=== PATIENT | male | born 1975 | race Caucasian/White ===

== ENCOUNTER 2017-09-11 13:03 | Emergency (ER) | payer OTHER ==
[~2017-09-11] VITALS: Ht 188 cm; Wt 99.8 kg
[~2017-09-11 13:03] MED LIST: GABAPENTIN300 MG PO; LAMOTRIGINE200 MG PO; LEVOTHYROXINE200 MCG PO; METOPROLOL SUCC50 MG PO; NORCO 5-325 TA1 EACH PO; NUVIGIL250 MG PO; OLANZAPINE ODT5 MG PO
[2017-09-11] MEDS ORDERED: PROPRANOLOL HCL60 MG PO (13:28)
[2017-09-11] MEDS ORDERED: AMOXICILLIN500 MG PO (15:32)
[2017-09-11] MEDS ORDERED: ROBITUSSIN COU237 M2 PO (15:32)
== END 2017-09-11 15:45 | disposition home or self-care (01) ==
LOC: ED 13:03
DX: J06.9 Acute upper respiratory infection, unspecified (principal); I10 Essential (primary) hypertension; E03.9 Hypothyroidism, unspecified; Z90.89 Acquired absence of other organs; Z79.899 Other long term (current) drug therapy; Z88.2 Allergy status to sulfonamides
CPT/HCPCS: 99283

== ENCOUNTER 2018-03-01 12:00 | Day surgery (SDC) | payer OTHER ==
[~2018-03-01] VITALS: Ht 188 cm; Wt 106.1 kg
[~2018-03-01 12:00] MED LIST changes: +AMOXICILLIN500 MG PO; +DICYCLOMINE HCL10 MG PO; +LAMICTAL200 MG PO; +NEURONTIN300 MG PO; +NUVIGIL150 MG PO; +PROPRANOLOL HCL60 MG PO; +ROBITUSSIN COU237 M2 PO; +UNITHROID200 MCG PO
--- NOTE | 2018-03-01 14:29 | NUR ---
03/01/18 1429 Clarice Keating 1420 PT ARRIVED IN PACU SLEEPY WITH NO C/O'S. OXYGEN DECREASED TO 2L VIA NC WITH SATS 100%. 1425 SIPPING ON WATER. OXYGEN REMOVED. SATS 97% ON RA. 1430 AT BEDSIDE TALKING WITH PT.
--- NOTE | 2018-03-02 15:24 | OR ---
[facility] [address] [place], [place] [address] Signed DATE OF OPERATION: 03/01/2018 SURGEON: Napoleon Webb MD PREOPERATIVE DIAGNOSES: 1. Persistent diarrhea, prior diagnosis of irritable bowel syndrome. 2. Lower abdominal pain. 3. Epigastric pain. POSTOPERATIVE DIAGNOSES: 1. Normal upper endoscopy. 2. Internal hemorrhoids. Colon and ilium appearing normal. PROCEDURES: 1. Esophagogastroduodenoscopy with biopsy. 2. Total colonoscopy to cecum with intubation of ileum and biopsies. ANESTHESIA: Intravenous sedation, fentanyl 150 mcg, Versed 7 mg (total). INDICATION: This 42-year-old white man is a patient Dr. Brannon and has had diarrhea for quite some time. He is known to me from need for emergent laparoscopic cholecystectomy in 2008. The patient is bothered by diarrhea, sometimes having 5-6 bowel movements a day, which were poorly formed. He additionally has lower abdominal pain and sometimes upper abdominal pain. He has been empirically treated with Viberzi for presumed diagnosis of irritable bowel syndrome, diarrhea predominant. This was not helpful to him. He is admitted at this time to undergo upper endoscopy and colonoscopy. He understands the risks of bleeding, infection, and perforation. FINDINGS: On upper endoscopy, the stomach, duodenum and esophagus appeared normal and good flap valve was noted. There was no sign of esophagitis, gastritis or duodenitis. Biopsies were obtained to assess for celiac disease. On colonoscopy, the prep was good. Complete colonoscopy was undertaken of the cecum and intubation of the ileum was accomplished as well. The ileum itself appeared normal. Multiple biopsies were obtained to assess for occult ileitis. The remaining colon appeared normal as well without signs of diverticular formation, colitis, cancer, or polyps. Biopsies were taken throughout to assess for collagenous colitis. Electronically Signed By: NAPOLEON WEBB MD 03/02/18 1524 PATIENT NAME: JOANNA CARDENAS OPERATIVE REPORT DATE OF : 75 REPORT #: [id number] PHYSICIAN: NAPOLEON WEBB MD PCP: ODILON CAIN MD REPORT IS CONFIDENTIAL AND NOT TO BE RELEASED WITHOUT AUTHORIZATION [facility] [address] [place], [place] [address] Signed DESCRIPTION OF PROCEDURE: The patient was brought to the endoscopy suite given topical Hurricaine spray hypopharyngeal anesthesia. He was placed in lateral decubitus position and given intravenous sedation to the point of slurred speech and nystagmus. A bite block was placed. An Olympus video upper endoscope was passed in the hypopharynx. The vocal cords appeared normal. The scope was advanced to the esophagus and throughout its length it appeared normal. The scope was advanced to the stomach, which was insufflated with air, was a small amount of bilious fluid in the stomach, which was suctioned free. Rugal folds appeared normal as did the antrum and pylorus. The scope was passed through the pylorus into the duodenum, which appeared normal. The ampulla was visualized and normal. Biopsies were taken of the duodenum and scope was withdrawn to the distal stomach where biopsies taken of the antrum for both DEDE and pathologic testing. Retroflexed view was undertaken showing a very good flap valve. No sign of hiatal hernia or proximal gastritis. Scope was straightened, withdrawn and biopsy was then taken of the normal-appearing esophageal mucosa. Careful withdrawal of scope showed no other findings. The scope was removed. The table was rotated and additional sedation given. Digital rectal examination was normal. An Olympus video colonoscope was passed in the rectum and manipulated without problem ultimately intubating the cecum. Ileocecal valve appeared normal as did the appendiceal orifice. With various manipulations, the scope was passed into the ilium and advanced into a fair distance. The ileum was bland, had no sign of ulcerations, stricture, neoplasm, inflammatory changes, or other problems. Biopsies were obtained nevertheless. The scope was then withdrawn to the cecum where biopsies were obtained. Careful withdrawal of scope showed no sign of abnormality throughout. Biopsies were taken of the left colon, sigmoid and rectum. Retroflexed view did show internal hemorrhoidal changes. No sign of acute problem however. The scope was removed and the patient was taken to recovery in good condition. CONCLUDING DIAGNOSIS: It is uncertain if he has irritable bowel syndrome proper diarrhea predominant or simply has effective cholecystectomy from years past. For now, we will initiate Questran 4 g p.o. q.i.d. tapering to the lowest effective dose if effective at all. He will return to see us in 4-6 weeks. Napoleon Webb MD Electronically Signed By: NAPOLEON WEBB MD 03/02/18 1524 PATIENT NAME: JOANNA CARDENAS OPERATIVE REPORT DATE OF : 75 REPORT #: [id number] PHYSICIAN: NAPOLEON WEBB MD PCP: ODILON CAIN MD REPORT IS CONFIDENTIAL AND NOT TO BE RELEASED WITHOUT AUTHORIZATION [address] [address] Signed /[facility] /[id number] cc: Dr. Brannon Copies: ~ Electronically Signed By: NAPOLEON WEBB MD 03/02/18 1524 PATIENT NAME: RONALDJOANNA GONZALES OPERATIVE REPORT DATE OF : 75 REPORT #: [id number] PHYSICIAN: NAPOLEON WEBB MD PCP: ODILON CAIN MD REPORT IS CONFIDENTIAL AND NOT TO BE RELEASED WITHOUT AUTHORIZATION
== END 2018-03-01 14:50 | disposition home or self-care (01) ==
LOC: OPS 12:00 → DS 12:00 → OPS 13:00
PROVIDERS: Surgery
PROC: 0DB38ZX Excision of Lower Esophagus, Via Natural or Artificial Opening Endoscopic, Diagnostic (ICD-10-PCS; 2018-03-01)
PROC: 0DBH8ZX Excision of Cecum, Via Natural or Artificial Opening Endoscopic, Diagnostic (ICD-10-PCS; 2018-03-01)
PROC: 0DBN8ZX Excision of Sigmoid Colon, Via Natural or Artificial Opening Endoscopic, Diagnostic (ICD-10-PCS; 2018-03-01)
PROC: 0DBP8ZX Excision of Rectum, Via Natural or Artificial Opening Endoscopic, Diagnostic (ICD-10-PCS; 2018-03-01)
PROC: 0DBB8ZX Excision of Ileum, Via Natural or Artificial Opening Endoscopic, Diagnostic (ICD-10-PCS; 2018-03-01)
PROC: 0DB98ZX Excision of Duodenum, Via Natural or Artificial Opening Endoscopic, Diagnostic (ICD-10-PCS; principal; 2018-03-01 13:00)
PROC: 0DB78ZX Excision of Stomach, Pylorus, Via Natural or Artificial Opening Endoscopic, Diagnostic (ICD-10-PCS; 2018-03-01 13:00)
DX: K64.8 Other hemorrhoids (principal); R10.13 Epigastric pain; K58.9 Irritable bowel syndrome, unspecified; I10 Essential (primary) hypertension; F17.220 Nicotine dependence, chewing tobacco, uncomplicated; Z98.890 Other specified postprocedural states; Z88.2 Allergy status to sulfonamides
CPT/HCPCS: 99153; G0500; J2250; J3010

== ENCOUNTER 2020-08-17 09:52 | Emergency (ER) | payer OTHER ==
[~2020-08-17] VITALS: Ht 188 cm; Wt 115.7 kg
--- OUTSIDE RECORDS SUMMARY | 2020-08-17 09:54 | XMS ---
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 Ghada has no Care Guidelines for this patient. Karlee VISIT COUNT (12 MO.) 1 SISI Cedeño TOTAL 1 NOTE: Visits indicate total known visits. ED/C VISIT TRACKING (12 MO.) 08/17/2020 09:53 SISI Rodriguez OR TYPE: Emergency COMPLAINT: - R MIDDLE FINGER INJURY INPATIENT VISIT TRACKING (12 MO.) No inpatient visits to display in this time frame [email or web address]
[2020-08-17] MEDS ORDERED: BUPROPION XL150 MG PO (10:17)
[2020-08-17] MEDS ORDERED: AMPHETAMINE SAL30 MG (10:17)
[2020-08-17] MEDS ORDERED: DULOXETINE HCL30 MG PO (10:17)
[2020-08-17] MEDS ORDERED: LORAZEPAM2 MG (10:18)
[2020-08-17] MEDS ORDERED: VYVANSE70 MG (10:18)
[2020-08-17] MEDS ORDERED: ROSUVASTATIN CA10 MG (10:18)
[2020-08-17] MEDS ORDERED: ATOMOXETINE HCL40 MG PO (10:18)
[2020-08-17] MEDS ORDERED: LEVOTHYROXINE150 MCG PO (10:18)
[2020-08-17] MEDS ORDERED: AMPHETAMINE SAL15 MG PO (10:18)
[2020-08-17] MEDS ORDERED: REXULTI2 MG PO (10:18)
== END 2020-08-17 10:59 | disposition home or self-care (01) ==
LOC: ED 09:52
DX: S61.212A Laceration without foreign body of right middle finger without damage to nail, initial encounter (principal); I10 Essential (primary) hypertension; E03.9 Hypothyroidism, unspecified; Z88.2 Allergy status to sulfonamides; Z79.899 Other long term (current) drug therapy; W31.89XA Contact with other specified machinery, initial encounter
CPT/HCPCS: 99283

== ENCOUNTER 2021-09-23 08:42 | Emergency (ER) | payer OTHER ==
[~2021-09-23] VITALS: Ht 188 cm; Wt 116.1 kg
[~2021-09-23 08:42] MED LIST changes: +AMPHETAMINE SAL15 MG PO; +AMPHETAMINE SAL30 MG; +ATOMOXETINE HCL40 MG PO; +BUPROPION XL150 MG PO; +DULOXETINE HCL30 MG PO; +LEVOTHYROXINE150 MCG PO; +LORAZEPAM2 MG; +REXULTI2 MG PO; +ROSUVASTATIN CA10 MG; +VYVANSE70 MG
[2021-09-23] MEDS ORDERED: ATOMOXETINE HCL80 MG PO (09:00)
== END 2021-09-23 10:02 | disposition home or self-care (01) ==
LOC: ED 08:42
DX: K92.2 Gastrointestinal hemorrhage, unspecified (principal); I10 Essential (primary) hypertension; E03.9 Hypothyroidism, unspecified; G47.30 Sleep apnea, unspecified; Z88.2 Allergy status to sulfonamides; Z79.899 Other long term (current) drug therapy
CPT/HCPCS: 36415; 80053; 85025; 99283

== ENCOUNTER 2021-10-22 06:08 | Day surgery (SDC) | payer OTHER ==
[~2021-10-22] VITALS: Ht 190.5 cm; Wt 117.7 kg
[~2021-10-22 06:08] MED LIST changes: +ATOMOXETINE HCL80 MG PO; +CRESTOR10 MG PO; +CYTOMEL5 MCG PO; +METHYLPHENIDATE PO
--- NOTE | 2021-10-22 10:01 | NUR ---
10/22/21 1001 Clarice Keating 0931 PT ARRIVED IN PACU NON RESPONSIVE TO NOXIOUS STIMULI WITH OPA AND CHIN LIFT BY ANESTHESIA. 0938 PT REACTIVE. OPA REMOVED. 0950 DR AT BEDSIDE TALKING WITH PT. ALL QUESTIONS ANSWERED. 1000 SITTING UP IN BEDSIDE DRINKING WATER.
--- NOTE | 2021-10-22 12:28 | NUR ---
PT ALERT, ORIENTED AND VISITING WITH HIS SABINA. PT HAS HAD SCOPE BEFORE ALL [facility] ASKED ANSWERED. PT THANKED ME FOR VISIT, GAVE BLESSING AND WILL FOLLOW NEEDED
--- NOTE | 2021-10-23 05:10 | OR ---
[facility] [address] [place], [place] [address] Signed DATE OF OPERATION: 10/22/2021 SURGEON: Jose F Sue MD PREOPERATIVE DIAGNOSES: 1. Intermittent rectal bleeding, mostly with bowel movements. 2. Internal hemorrhoids. 3. Irritable bowel syndrome with diarrhea. 4. Laparoscopic cholecystectomy in 2008. 5. Upper and lower endoscopy in 2017. POSTOPERATIVE DIAGNOSIS: Minimal to moderate internal hemorrhoids. PROCEDURES: Colonoscopy biopsy. ESTIMATED BLOOD LOSS: None. INDICATIONS: Flash is a 46-year-old gentleman asked to see me for ongoing intermittent rectal bleeding associated with internal hemorrhoids. He said it is mostly with bowel movements. He described irritable bowel syndrome with diarrhea throughout his entire life. He underwent laparoscopic cholecystectomy in [address] Moody. He underwent upper and lower endoscopy with Dr. Moody in 2016. At that time, he did well Versed and fentanyl. He was said to have internal hemorrhoid tissue. Biopsies from his stomach and the colon were negative. He came and saw me in July 2020 for intermittent rectal bleeding. We reviewed the records together in office. He has been pursuing conservative measures for the hemorrhoids. Unfortunately, he has yet to really adopt the idea of fiber in his diet. We have reviewed Benefiber, Metamucil and Citrucel. He remains uninterested in surgery. He is always a bit anxious and does use lorazepam on a daily basis. He actually went to the emergency room in June of [address] Mai. He had been having intermittent rectal bleeding for several months. He had been referred to my office with respect to the above. He gives no family history of colon cancer, colon polyps or inflammatory bowel disease. Once again, we had a long discussion in the office and he declined a digital rectal exam and anoscopy. He wanted to repeat the colonoscopy and make sure nothing other than the internal hemorrhoids were causing the bleeding. I gave him our brochure on colonoscopy. He understands the nature of the test. There is risk including, but not limited to gas bloating, crampy abdominal pain, Electronically Signed By: JOSE F SUE MD 10/23/21 0510 PATIENT NAME: JOANNA CARDENAS OPERATIVE REPORT DATE OF : 75 REPORT #: [id number] PHYSICIAN: JOSE F SUE MD PCP: WENDY RAMÍREZ MD REPORT IS CONFIDENTIAL AND NOT TO BE RELEASED WITHOUT AUTHORIZATION [facility] [address] [place], [place] [address] Signed bleeding, perforation requiring surgery, and missed diagnosis. We also spent some time reviewing his medications as well as his previous endoscopy using Versed and fentanyl. We had offered monitored anesthesia care with propofol given his size and his sleep apnea as well. He wanted to pursue the Versed and fentanyl first. He had expressed understanding and wished to proceed. PROCEDURE NOTE: Flash was taken into the endoscopy suite and placed in the left lateral decubitus position. He was given a total of 100 mcg of fentanyl and 6 mg of Versed with very little effect. We therefore had our anesthesia provider come to provide propofol. With the propofol, he had no lid reflex. With a digital rectal exam, he woke straight up and was talking to us quite coherently. It was pretty impressive in that regard. We therefore gave him some additional propofol. He has excellent sphincter tone and no evidence of any external hemorrhoids. He is too large to reach his prostate gland. There were no masses. The adult colonoscope was introduced and advanced around into the cecum under direct visualization of the camera without difficulty. Again, he required additional propofol. His prep was quite good. We could easily see the appendiceal orifice and the ileocecal valve. The scope was then slowly withdrawn. He had no inflammatory changes or polyps throughout his entire colon or rectum. There was no diverticulosis. No AV malformations. Upon retroflexion of the scope, he does have minimal to moderate internal hemorrhoid columns. No obvious bleeding or irritated hemorrhoid column. After this, the gas was suctioned out and the colonoscope removed. Flash tolerated his procedure quite well after the addition of the propofol. RECOMMENDATIONS: Flash can follow up in my office as needed with respect to the hemorrhoids. I have already covered that with him in great detail on his first office visit along with our brochure. Otherwise, we would see him back in 10 years for repeat screening colonoscopy. Jose F Sue MD ALB/MODL /[id number] cc: Wendy Ramírez MD Electronically Signed By: JOSE F SUE MD 10/23/21 0510 PATIENT NAME: JOANNA CARDENAS OPERATIVE REPORT DATE OF : 75 REPORT #: [id number] PHYSICIAN: JOSE F SUE MD PCP: WENDY RAMÍREZ MD REPORT IS CONFIDENTIAL AND NOT TO BE RELEASED WITHOUT AUTHORIZATION [facility] [address] [place], [place] [address] Signed Jose F Sue MD Copies: WENDY RAMÍREZ DMD, ANDREW L MD ~ Electronically Signed By: JOSE F SUE MD 10/23/21 0510 PATIENT NAME: JOANNA CARDENAS OPERATIVE REPORT DATE OF : 75 REPORT #: [id number] PHYSICIAN: JOSE F SUE MD PCP: WENDY RAMÍREZ MD REPORT IS CONFIDENTIAL AND NOT TO BE RELEASED WITHOUT AUTHORIZATION
== END 2021-10-22 10:10 | disposition home or self-care (01) ==
LOC: DS 06:08 → OPS 06:08 → DS 08:15 → OPS 10:10
PROVIDERS: ATTEND Colon & Rectal Surgery
PROC: 0DJD8ZZ Inspection of Lower Intestinal Tract, Via Natural or Artificial Opening Endoscopic (ICD-10-PCS; principal; 2021-10-22 08:15)
DX: K64.8 Other hemorrhoids (principal); K62.5 Hemorrhage of anus and rectum; K58.0 Irritable bowel syndrome with diarrhea; E89.0 Postprocedural hypothyroidism; I10 Essential (primary) hypertension; E78.2 Mixed hyperlipidemia; F17.220 Nicotine dependence, chewing tobacco, uncomplicated; Z20.822 Contact with and (suspected) exposure to COVID-19; Z90.49 Acquired absence of other specified parts of digestive tract; Z88.2 Allergy status to sulfonamides; Z88.0 Allergy status to penicillin; Z88.6 Allergy status to analgesic agent; Z86.59 Personal history of other mental and behavioral disorders
CPT/HCPCS: J2250; J2704; J3010; J7121; U0003

== ENCOUNTER 2023-12-09 07:55 | Day surgery (SDC) | payer OTHER ==
[2023-12-02 16:40] VITALS: BP 133/80
[~2023-12-09] VITALS: Ht 188 cm; Wt 123.6 kg
[~2023-12-09 07:55] MED LIST changes: +BAYER CHEWABLE81 MG PO; +IBLOOD GLUCOSE TEST STRIP 1 EA TEST VI PRN; +LACTATED RINGER'S 1,000 ML IV SCH; +LIDOCAINE HCL 1% 5 ML SDV INJ ONE
[2023-12-09] MEDS ORDERED: VYVANSE70 MG PO (08:15)
[2023-12-09] MEDS ORDERED: ABILIFY5 MG PO (08:17)
[2023-12-09 08:18] VITALS: BP 125/77
[2023-12-09] MEDS ORDERED: LIDOCAINE HCL 2% 5 ML SDV ONE (09:12)
[2023-12-09] MEDS ORDERED: propofoL 200 MG/20 ML VIAL ONE ×2 (09:12→09:47)
--- NOTE | 2023-12-09 10:09 | NUR ---
12/09/23 1009 Mirta Yan 0958-PATIENT ARRIVED TO PACU ON 4L NC 94% PATIENT HAS APNEA. REACTIVE TO VERBAL STIMULI OPENING EYES ENCOURAGED TO TAKE DEEP BREATHES. HOB ELEVATED. SR HR 70'S IVF INFUSING. ABDOMEN SOFT. 1009-PATIENT AWAKE DENIES PAIN OR NAUSEA. RA 95% RR EVEN. DENIES PAIN OR NAUSEA. REQUESTING DIET SODA. HOB ELEVATED.
[2023-12-09 10:29] VITALS: BP 116/81
--- NOTE | 2023-12-10 07:29 | OR ---
[facility] [address] [place], [place] [address] Signed DATE OF OPERATION: 12/09/2023 SURGEON: Jose F Sue MD PREOPERATIVE DIAGNOSES: 1. Chronic epigastric abdominal pain. 2. Chronic nausea. 3. Gastroesophageal reflux disease. 4. Small sliding hiatal hernia. 5. Irritable bowel syndrome. POSTOPERATIVE DIAGNOSES: 1. Small hiatal hernia. 2. GE junction at 36 cm. 3. Retained food in stomach. PROCEDURES: Esophagogastroduodenoscopy with CLOtest. ESTIMATED BLOOD LOSS: None. INDICATIONS: Flash is a 48-year-old white gentleman asked to see me for followup upper endoscopy. He has chronic epigastric abdominal pain associated with chronic nausea for many years. In 2008, Dr. Moody had removed his gallbladder. In 2018, Dr. Moody helped him up both upper and lower endoscopy at the age of 42. The upper endoscopy was negative and his colonoscopy showed just some minimal internal hemorrhoids. The biopsies from the stomach were not concerning. I helped him in 2021 with a colonoscopy at the age of 46 due to rectal bleeding. He had some internal hemorrhoids. He declined surgery because he notes it is very painful after talking to his friends. More recently, he feels like the acid reflux has gotten worse. He is on omeprazole once a day. He had an ultrasound of his abdomen last fall which was unremarkable. He had an upper GI study done in August of this year and it showed a small sliding hiatal hernia with some acid reflux. He said he has quit chewing snuff, but uses Zyn pouches. He has quit drinking alcohol as well. Despite all this he seems to be having symptoms and missing work. Anything with carbonation makes it much worse. He knows not to eat before he goes to bed. In the office, I gave him a pamphlet on upper endoscopy. We looked at it together. He understands upper endoscopy quite well. I also gave him our brochure on hiatal hernia and acid reflux. We reviewed the medical versus surgical treatment. He understands Electronically Signed By: JOSE F SUE MD 12/10/23 0729 PATIENT NAME: JOANNA CARDENAS OPERATIVE REPORT DATE OF : 75 REPORT #: [id number] PHYSICIAN: JOSE F SUE MD PCP: WENDY RAMÍREZ MD REPORT IS CONFIDENTIAL AND NOT TO BE RELEASED WITHOUT AUTHORIZATION [facility] [address] [place], [place] [address] Signed there is risk to upper endoscopy including but not limited to gas bloating, crampy abdominal pain, bleeding, perforation requiring surgery, and missed diagnosis. He also understands the need for monitored anesthesia care given the fact that he needs lorazepam on a daily basis as well as his Adderall. He also has a very full round face with a full face, roblero and mustache. He had expressed understanding and wished to proceed with upper endoscopy. PROCEDURE IN DETAIL: Joanna was taken into our endoscopy suite and placed in the supine semi-recumbent position. He was given monitored anesthesia care with propofol infusion per our nurse lacer and tier. That proved to be a brewer decision. It took a bit of propofol to get him fully sedated. A bite block was utilized for the case. The adult gastroscope was introduced and advanced under direct visualization of camera without difficulty. As we came in the stomach we encountered quite a bit of food actually in the antrum. He had some in his fundus as well. We tried for a few minutes, we could not get around the food to get out in the pyloric bulb or into the duodenum. We did not see any obvious concerns in his stomach. We went ahead and took a biopsy for CLOtest. Upon retroflexion of scope it looks like he does have just a small sliding hiatal hernia. It was hard to see completely because of the food. The scope was withdrawn up to the GE junction, which was compliant without stricture. He really has no disruption to the Z-line. There was no Vanessa's mucosa. There was no distal esophagitis. The middle and upper esophagus were unremarkable. After this the gas was suctioned out, the gastroscope removed. Flash tolerated his procedure quite well. RECOMMENDATIONS: I will see just back in my office in 7 to 14 days to review his results. He might consider a solid phase gastric emptying scan to evaluate for gastroparesis. Jose F Sue MD ALB/MODL /[id number] cc: MD Wendy Chacon MD Electronically Signed By: JOSE F SUE MD 12/10/23 0729 PATIENT NAME: JOANNA CARDENAS OPERATIVE REPORT DATE OF : 75 REPORT #: [id number] PHYSICIAN: JOSE F SUE MD PCP: WENDY RAMÍREZ MD REPORT IS CONFIDENTIAL AND NOT TO BE RELEASED WITHOUT AUTHORIZATION [facility] [address] [place], [place] [address] Signed Copies: JOSE F SUE MD, ROBERT D DMD ~ Electronically Signed By: JOSE F SUE MD 12/10/23 0729 PATIENT NAME: JOANNA CARDENAS OPERATIVE REPORT DATE OF : 75 REPORT #: [id number] PHYSICIAN: JOSE F SUE MD PCP: WENDY RAMÍREZ MD REPORT IS CONFIDENTIAL AND NOT TO BE RELEASED WITHOUT AUTHORIZATION
== END 2023-12-09 10:35 | disposition home or self-care (01) ==
LOC: DS 07:55
PROVIDERS: ATTEND Colon & Rectal Surgery
PROC: 0DB68ZX Excision of Stomach, Via Natural or Artificial Opening Endoscopic, Diagnostic (ICD-10-PCS; principal; 2023-12-09 09:30)
DX: K44.9 Diaphragmatic hernia without obstruction or gangrene (principal); T18.2XXA Foreign body in stomach, initial encounter; K21.9 Gastro-esophageal reflux disease without esophagitis; G89.29 Other chronic pain; I10 Essential (primary) hypertension; E03.9 Hypothyroidism, unspecified; F31.9 Bipolar disorder, unspecified; E66.9 Obesity, unspecified; E78.5 Hyperlipidemia, unspecified; K58.9 Irritable bowel syndrome, unspecified; Z88.2 Allergy status to sulfonamides; Z88.0 Allergy status to penicillin; Z88.8 Allergy status to other drugs, medicaments and biological substances; Z68.35 Body mass index [BMI] 35.0-35.9, adult; W44.F3XA Food entering into or through a natural orifice, initial encounter
CPT/HCPCS: 00731; 36415; 87077; J2001; J2704; J7121

== ENCOUNTER 2025-06-01 08:39 | Day surgery (SDC) | payer OTHER ==
[~2025-06-01] VITALS: Ht 188 cm; Wt 120.0 kg
[~2025-06-01 08:39] MED LIST changes: +ABILIFY5 MG PO; -CRESTOR10 MG PO; +CRESTOR40 MG PO; -LORAZEPAM2 MG; +LORAZEPAM2 MG PO; +VYVANSE70 MG PO
[2025-06-01 09:05] VITALS: BP 119/70
[2025-06-01] MEDS ORDERED: LIDOCAINE HCL 2% 5 ML SDV ONE (09:49)
[2025-06-01] MEDS ORDERED: fentaNYL citrate 100 MCG/2 ML VIAL ONE (09:49)
--- NOTE | 2025-06-01 11:09 | NUR ---
06/01/25 1109 Mirta Yan 1049-PATIENT ARRIVED TO PACU ON 6L RR EVEN 91% NONAROUSABLE LAYING LEFT LATERAL ABDOMEN SOFT. RN AND GAMEWELL OPERATOR STIMULATING PATIENT WITH VERBAL ANDF TACTILE STIMULI PATIENT AROUSING REPOSITIONED IN BED. 02 SAT INCREASED TO 100% ON 6L MASK RR EVEN HOB IS ELEVATED 1055-PATIENT AWAKE REPORTING "NEED TO GO TO THE BATHROOM" ENCOURAGED TO PASS GAS. 6L MASK RR EVEN 100% 1105-PATIENT AWAKE SITTING UP ON SIDE OF BED REPORTS "NEEDS TO GO" WHEN ASKED ABOUT STOMACH REPORTS "IT HURTS" ENCOURAGED TO PASS GAS SBA TO BATHROOM.
[2025-06-01 11:38] VITALS: BP 111/71
--- NOTE | 2025-06-02 08:51 | OR ---
[facility] [address] [facility] [place], [place] [address] Signed DATE OF OPERATION: 06/01/2025 SURGEON: Wendy Alexandra DO PREOPERATIVE DIAGNOSES: 1. Gastroesophageal reflux symptoms. 2. Colon cancer screening. POSTOPERATIVE DIAGNOSES: 1. Gastroesophageal reflux symptoms. 2. Colon cancer screening. 3. Gastric erosion, distal esophagitis, punctate gastritis, colonic polyps at 30 and 75 cm and diverticulosis. PROCEDURES PERFORMED: 1. Esophagogastroduodenoscopy with biopsy. 2. Colonoscopy with cold forceps biopsy of the polyps at 30 cm and 75 cm. ANESTHESIA: IV sedation. ESTIMATED BLOOD LOSS: None. DRAINS: None. COMPLICATIONS: None. DESCRIPTION OF PROCEDURE: The patient brought to the GI lab, placed in supine position. After induction of IV sedation through preanesthetized oropharynx and a bite block, the Olympus video endoscope was introduced into the mouth directed to the length of esophagus into the distal esophagus. Distal esophagus showed some moderate distal esophagitis and ulcerations noted. Scope was brought back and was placed into the stomach. Some punctate gastritis was noted and some scattered gastric erosions were present down toward the antrum. No bleeding was appreciated. Scope was then brought back and was placed through the pylorus. First and second portions of duodenum essentially unremarkable. Scope was brought back into the stomach, retroflexed on itself. No Electronically Signed By: WENDY ALEXANDRA DO 06/02/25 0851 PATIENT NAME: RONALDJOANNA HERNANDEZ OPERATIVE REPORT DATE OF : 75 REPORT #: [id number] PHYSICIAN: WENDY ALEXANDRA DO PCP: WENDY RAMÍREZ MD REPORT IS CONFIDENTIAL AND NOT TO BE RELEASED WITHOUT AUTHORIZATION [facility] [address] [place], [place] [address] Signed evidence of hiatal hernia was appreciated. Scope was placed in neutral position. Stomach was decompressed and scope was withdrawn. The patient was then placed in left lateral position and padded to the satisfaction of anesthesia. The Olympus video colonoscope was then introduced into the rectum and while under direct visualization with insufflation, the scope was advanced through the rectosigmoid, sigmoid colon, descending colon, transverse colon, ascending colon into the cecum. The colon was then insufflated and exploration and visualization of the mucosa surface carried out. No intrinsic or extrinsic masses were noted at the ascending colon or cecum. At the proximal transverse colon, a flat broad-based polyp was noted and he had cold biopsy forceps utilized. Multiple biopsies were taken of this polyp, passed off the field for pathologic review. Satisfactory hemostasis was maintained. The scope was then brought back into the remainder of the descending colon, which was essentially unremarkable. The scope was brought back into the sigmoid colon at approximately 30 cm. A flat broad-based polyp was identified, utilized cold biopsy forceps, utilized to take multiple biopsies of the polyp and passed off the field for pathologic review. In the sigmoid and rectosigmoid, there were scattered diverticula present, but no evidence of bleeding and no evidence of inflammation was noted. The remainder of the colonoscopy was unremarkable. Scope was withdrawn. The patient tolerated the procedure well and taken to recovery room in satisfactory condition. Wendy Alexandra DO RS/MODL /[id number] Copies: ~ Electronically Signed By: WENDY ALEXANDRA DO 06/02/25 0851 PATIENT NAME: JOANNA CARDENAS OPERATIVE REPORT DATE OF : 75 REPORT #: [id number] PHYSICIAN: WENDY ALEXANDRA DO PCP: WENDY RAMÍREZ MD REPORT IS CONFIDENTIAL AND NOT TO BE RELEASED WITHOUT AUTHORIZATION
--- NOTE | 2025-06-05 12:14 | PATH ---
[facility] [address], [place] [address] Signed SPECIMEN(S): A RANDOM STOMACH BIOPSY SPECIMEN(S): B COLON POLYP AT 75 CM SPECIMEN(S): C COLON POLYP AT 30 CM SPECIMEN SOURCE: A. RANDOM STOMACH BIOPSY B. COLON POLYP AT 75 CM C. COLON POLYP AT 30 CM CLINICAL HISTORY: GERD, melanotic stool, mild gastritis, gastric ulcer FINAL PATHOLOGIC DIAGNOSIS: A. Random stomach biopsy: - Benign gastric mucosa - Negative for active acute inflammation, intestinal metaplasia, dysplasia, or Helicobacter organisms by routine HE stain. B. Colon polyp at 75 cm: - Tubular adenoma C. Colon polyp at 30 cm: - Benign colonic mucosa - Negative for specific features of polyp BB MICROSCOPIC EXAMINATION: Histologic sections of all submitted blocks are examined by light microscopy. These findings, together with the gross examination, support the pathologic diagnosis. GROSS DESCRIPTION: A. The specimen, labeled and designated "Guilherme, random stomach biopsy," is received in formalin and consists of one montes soft tissue fragment, 0.3 cm. Entirely submitted in (A1). B. The specimen, labeled and designated "Guilherme, colon polyp at 75 cm," is received in formalin and consists of one montes soft tissue fragment, 0.3 cm. Entirely submitted in (B1). C. The specimen, labeled and designated "Guilherme, colon polyp at 30 cm," is received in formalin and consists of two montes soft tissue fragments, ranging from 0.2-0.3 cm. Entirely submitted in (C1). VB (under the direct supervision of a pathologist) The Gross Description was prepared using a voice recognition system. The report PATIENT NAME: JOANNA CARDENAS PATHOLOGY DATE OF : 75 REPORT #: [id number] PHYSICIAN: CLARISA PATHOLOGY PCP: WENDY RAMÍREZ MD REPORT IS CONFIDENTIAL AND NOT TO BE RELEASED WITHOUT AUTHORIZATION [facility] [address], [place] [address] Signed was reviewed for accuracy; however, sound-alike word errors, addition and/or deletions may occur. If there is any question about this report, please contact Client Services. ADDITIONAL NOTES: Immunohistochemical and/or in situ hybridization studies if performed in this case included appropriate positive controls that reacted as expected. This test was developed and its performance characteristics determined by [facility]. It has not been cleared or approved by the U.S. Food and Drug Administration. The FDA has determined that such clearance or approval is not necessary. This test is used for clinical purposes. It should not be regarded as investigational or for research. [facility] is certified under the Clinical Laboratory Improvement Amendments of 1988 (CLIA) as qualified to perform high complexity clinical laboratory testing. PERFORMING LABORATORY: Technical component was performed by [facility], [address] [place] [id number] (CLIA# [id number]). Professional interpretation was performed by [facility] [address] [address] (CLIA#: [id number]). Diagnostician: Angelo Chavez MD Pathologist Electronically Signed 06/05/2025 Copies: ~ PATIENT NAME: JOANNA CARDENAS PATHOLOGY DATE OF : 75 REPORT #: [id number] PHYSICIAN: CLARISA PATHOLOGY PCP: WENDY RAMÍREZ MD REPORT IS CONFIDENTIAL AND NOT TO BE RELEASED WITHOUT AUTHORIZATION
== END 2025-06-01 11:45 | disposition home or self-care (01) ==
LOC: OPS 08:39 → DS 08:39 → OPS 10:10 → DS 11:10 → OPS 11:45
PROVIDERS: ATTEND Surgery
PROC: 0DBL8ZZ Excision of Transverse Colon, Via Natural or Artificial Opening Endoscopic (ICD-10-PCS; 2025-06-01)
PROC: 0DB68ZX Excision of Stomach, Via Natural or Artificial Opening Endoscopic, Diagnostic (ICD-10-PCS; principal; 2025-06-01 10:10)
PROC: 0DBN8ZZ Excision of Sigmoid Colon, Via Natural or Artificial Opening Endoscopic (ICD-10-PCS; 2025-06-01 10:10)
DX: K21.00 Gastro-esophageal reflux disease with esophagitis, without bleeding (principal); K62.5 Hemorrhage of anus and rectum; D12.3 Benign neoplasm of transverse colon; K63.5 Polyp of colon; K57.30 Diverticulosis of large intestine without perforation or abscess without bleeding; K25.9 Gastric ulcer, unspecified as acute or chronic, without hemorrhage or perforation; K29.70 Gastritis, unspecified, without bleeding; I10 Essential (primary) hypertension; E78.2 Mixed hyperlipidemia; E89.0 Postprocedural hypothyroidism; F31.81 Bipolar II disorder; K76.0 Fatty (change of) liver, not elsewhere classified; F17.220 Nicotine dependence, chewing tobacco, uncomplicated; E66.01 Morbid (severe) obesity due to excess calories; Z68.35 Body mass index [BMI] 35.0-35.9, adult; Z79.899 Other long term (current) drug therapy; Z88.0 Allergy status to penicillin; Z88.1 Allergy status to other antibiotic agents; Z88.2 Allergy status to sulfonamides; Z88.6 Allergy status to analgesic agent; Z90.49 Acquired absence of other specified parts of digestive tract
CPT/HCPCS: 00813; J2003; J2704; J3010; J7121